=== PATIENT | male | born 1960 | race African-American/Black ===

== ENCOUNTER 2019-08-14 07:09 | Emergency (ER) | payer OTHER, MEDICAID ==
[~2019-08-14] VITALS: Ht 182.9 cm; Wt 54.0 kg
[~2019-08-14 07:09] MED LIST: ACET500T33 PO; GABA-585 PO; HYDR-2761 PO
[2019-08-14 08:05] VITALS: BP 138/74
[2019-08-14] MEDS ORDERED: predniSONE 20 MG TABLET PO ONE (08:15)
[2019-08-14] MEDS ORDERED: CEPHALEXIN 250 MG CAPSULE. PO ONE (08:15)
[2019-08-14] MEDS ORDERED: NYSTATIN TOPICAL POWDER 15GM BOTTLE. TP ONE (08:15)
[2019-08-14] MEDS ORDERED: CEPH-264 PO (08:30)
[2019-08-14] MEDS ORDERED: KETO30CR TP (08:30)
--- NOTE | 2019-08-14 08:31 | PHYS DOC ---
Past Medical History Past Medical History: No Pertinent History Additional Past Surgical Histo: right hip Smoking Status: Current Every Day Smoker Alcohol Use: None Adult General Chief Complaint Chief Complaint: SKIN RASH/ABSCESS HPI HPI Patient is a 58-year-old male who presents with a rash around his umbilicus. He states it started a few days ago has spread. He is noticed little dots outside of the area. He states it's now weeping fluid. He states the rash is really nowhere else.[] Review of Systems Review of Systems Constitutional: Denies fever or chills [] Eyes: Denies change in visual acuity, redness, or eye pain [] HENT: Denies nasal congestion or sore throat [] Respiratory: Denies cough or shortness of breath [] Cardiovascular: No additional information not addressed in HPI [] GI: Denies abdominal pain, nausea, vomiting, bloody stools or diarrhea [] : Denies dysuria or hematuria [] Musculoskeletal: Denies back pain or joint pain [] Integument: Per history of present illness[] Neurologic: Denies headache, focal weakness or sensory changes [] Endocrine: Denies polyuria or polydipsia [] All other systems were reviewed and found to be within normal limits, except as documented in this note. Current Medications Current Medications Current Medications Medications (Trade) Dose Ordered Sig/William Start Time Stop Time Status Last Admin Dose Admin Cephalexin HCl (Keflex) 500 mg 1X ONCE 08/14/19 08:15 08/14/19 08:16 DC Nystatin (Nystop) 1 sahara 1X ONCE 08/14/19 08:15 08/14/19 08:16 DC Prednisone (Prednisone) 60 mg 1X ONCE 08/14/19 08:15 08/14/19 08:16 DC Allergies Allergies Allergies Coded Allergies Type Severity Reaction Last Updated Verified No Known Drug Allergies 01/04/14 No Physical Exam Physical Exam Constitutional: Well developed, well nourished, no acute distress, non-toxic appearance. [] HENT: Normocephalic, atraumatic, bilateral external ears normal, oropharynx moist, no oral exudates, nose normal. [] Eyes: PERRLA, EOMI, conjunctiva normal, no discharge. [] Neck: Normal range of motion, no tenderness, supple, no stridor. [] Cardiovascular:Heart rate regular rhythm, no murmur [] Lungs & Thorax: Bilateral breath sounds clear to auscultation [] Abdomen: Bowel sounds normal, soft, no tenderness, no masses, no pulsatile masses. [] Skin: Red weeping rash with satellite lesions consistent with candidiasis intertigo around umbilicus[] Back: No tenderness, no CVA tenderness. [] Extremities: No tenderness, no cyanosis, no clubbing, ROM intact, no edema. [] Neurologic: Alert and oriented X 3, normal motor function, normal sensory fun ction, no focal deficits noted. [] Psychologic: Anxious[] Current Patient Data Vital Signs Vital Signs Date Time Temp Pulse Resp B/P (MAP) Pulse Ox O2 Delivery O2 Flow Rate FiO2 08/14/19 08:05 98.0 88 20 138/74 (95) 98 Room Air 98.0 EKG EKG [] Radiology/Procedures Radiology/Procedures [] Course & Med Decision Making Course & Med Decision Making Pertinent Labs and Imaging studies reviewed. (See chart for details) [] Dragon Disclaimer Dragon Disclaimer This electronic medical record was generated, in whole or in part, using a voice recognition dictation system. Departure Departure Impression: Primary Impression: Candidiasis, intertriginous Disposition: HOME, SELF-CARE Condition: STABLE Referrals: UNKNOWN PCP NAME (PCP) Scripts Cephalexin (KEFLEX) 500 Mg Capsule 1 CAP PO TID, #30 CAP Prov: JARVIS SHARMA DO 08/14/19 Ketoconazole/Hydrocortisone (Hydrocort 2.5%-Ketoconazole 2%) 30 Gm Cream..g. 30 GM TP BID, #1 EACH Prov: JARVIS SHARMA DO 08/14/19 JARVIS SHARMA DO Aug 14, 2019 08:31
== END 2019-08-14 08:45 | disposition home or self-care (01) ==
LOC: ER 07:09
DX: B37.2 Candidiasis of skin and nail (principal); F17.200 Nicotine dependence, unspecified, uncomplicated
CPT/HCPCS: 99284; J7512

== ENCOUNTER 2019-09-23 21:13 | Emergency (ER) | payer OTHER, MEDICAID ==
[~2019-09-23] VITALS: Ht 182.9 cm; Wt 63.5 kg
[~2019-09-23 21:13] MED LIST changes: +CEPH-264 PO; +KETO30CR TP
[2019-09-23] MEDS ORDERED: SULF1TAB24 PO (23:21)
[2019-09-23] MEDS ORDERED: METH4TAB2 PO (23:21)
[2019-09-23] MEDS ORDERED: MUPI22OI2 TP (23:21)
--- NOTE | 2019-09-23 23:21 | PHYS DOC ---
Past Medical History Past Medical History: No Pertinent History Additional Past Surgical Histo: right hip Smoking Status: Current Every Day Smoker Alcohol Use: None General Adult EDM: Chief Complaint: SKIN RASH/ABSCESS HPI: HPI: Patient is a 58 year old male who presents with complaint of rash to his abdomen. Patient was seen here a little over a month ago for the same complaint and was diagnosed with yeast infection. Patient states that he used the medic ation but it has only gotten worse since that time. He denies any fever. He denies any nausea or vomiting.[] Review of Systems: Review of Systems: Constitutional: Denies fever or chills. [] Respiratory: Denies cough or shortness of breath. [] Cardiovascular: Denies chest pain or edema. [] Integument: Complains of rash. [] Neurologic: Denies headache, focal weakness or sensory changes. [] Heart Score: Risk Factors: Risk Factors: DM, Current or recent (<one month) smoker, HTN, HLP, family history of CAD, obesity. Risk Scores: Score 0 - 3: 2.5% MACE over next 6 weeks - Discharge Home Score 4 - 6: 20.3% MACE over next 6 weeks - Admit for Clinical Observation Score 7 - 10: 72.7% MACE over next 6 weeks - Early Invasive Strategies Allergies: Allergies: Allergies Coded Allergies Type Severity Reaction Last Updated Verified No Known Drug Allergies 01/04/14 No Physical Exam: PE: Constitutional: Well developed, well nourished, no acute distress, non-toxic appearance. [] Cardiovascular:Heart rate regular rhythm, no murmur [] Lungs & Thorax: Bilateral breath sounds clear to auscultation [] Skin: There is a large area of rash to the abdomen, extending up to the lower chest with numerous excoriations and honey crust appearance, consistent with impetigo. [] Current Patient Data: Vital Signs: Vital Signs Date Time Temp Pulse Resp B/P (MAP) Pulse Ox O2 Delivery O2 Flow Rate FiO2 09/23/19 21:40 98.1 84 18 120/65 (83) 97 Room Air 98.1 EKG: EKG: [] Radiology/Procedures: Radiology/Procedures: [] Course & Med Decision Making: Course & Med Decision Making Pertinent Labs and Imaging studies reviewed. (See chart for details) [] Dragon Disclaimer: Dragon Disclaimer: This electronic medical record was generated, in whole or in part, using a voice recognition dictation system. Departure Departure Impression: Primary Impression: Impetigo Disposition: 01 HOME, SELF-CARE Condition: STABLE Referrals: UNKNOWN PCP NAME (PCP) Patient Instructions: Impetigo Scripts Mupirocin (MUPIROCIN OINTMENT) 22 Gm Oint...g. 1 BIB[place] TP TID for WOUND CARE, #2 TUBE 1 Refill Prov: AUTUMN KEARNS Jr. DO 09/23/19 Methylprednisolone (MEDROL) 4 Mg Tab.ds.pk 1 PKG PO UD, #1 PKG Prov: AUTUMN KEARNS Jr. DO 09/23/19 Sulfamethoxazole/Trimethoprim (BACTRIM DS TABLET) 1 Each Tablet 1 TAB PO BID for 10 Days, #20 TAB 0 Refills Prov: AUTUMN KEARNS Jr. DO 09/23/19 AUTUMN KEARNS Jr. DO Sep 23, 2019 23:21
[2019-09-23] MEDS ORDERED: predniSONE 10 MG TABLET PO ONE (23:45)
[2019-09-23] MEDS ORDERED: MUPIROCIN 2 % TOPICAL CREAM 30GM TUBE. TP ONE (23:45)
[2019-09-23] MEDS ORDERED: SMZ/TMP 800/160MG TABLET. PO ONE (23:45)
[2019-09-24 00:01] VITALS: BP 142/78
== END 2019-09-23 23:55 | disposition home or self-care (01) ==
LOC: ER 21:13
DX: L01.00 Impetigo, unspecified (principal); F17.200 Nicotine dependence, unspecified, uncomplicated
CPT/HCPCS: 99283; J7512